=== PATIENT | male | born 1995 | race Caucasian/White ===

== ENCOUNTER → 2024-12-27 15:51 | Outpatient (REF) | payer BC, SELFPAY | LOC: HWRAD 15:51 | PROVIDERS: ATTENDING PHYSICIAN Nurse Practitioner Family | DX: M25.552 Pain in left hip (principal); S76.109A Unspecified injury of unspecified quadriceps muscle, fascia and tendon, initial encounter | CPT/HCPCS: 73502; 73552 ==

== ENCOUNTER → 2025-08-06 19:48 | Outpatient (REF) | payer BC, SELFPAY | LOC: PAVMRI 19:48 | PROVIDERS: ATTENDING PHYSICIAN Nurse Practitioner Family | DX: M25.552 Pain in left hip (principal); S76.109A Unspecified injury of unspecified quadriceps muscle, fascia and tendon, initial encounter | CPT/HCPCS: 72195 ==